=== PATIENT | male | born 1995 | race African-American/Black ===

== ENCOUNTER 2019-01-31 13:37 | Emergency (ER) | payer SELFPAY | END 2019-01-31 13:50 | disposition left against medical advice (07) | LOC: ER 13:37 | DX: Z11.3 Encounter for screening for infections with a predominantly sexual mode of transmission (principal); Z53.21 Procedure and treatment not carried out due to patient leaving prior to being seen by health care provider ==

== ENCOUNTER 2019-05-01 12:45 | Emergency (ER) | payer BC ==
[~2019-05-01] VITALS: Ht 175.3 cm; Wt 68.0 kg
[2019-05-01 13:23] VITALS: BP 132/85
--- NOTE | 2019-05-01 13:32 | RAD ---
HAND RIGHT 3V History: Right hand pain after punching brick wall. One week ago. Technique: 3 views right hand. Comparison: None. Findings: Transverse comminuted right fifth metacarpal shaft fracture. Mild angulation of the distal fracture fragment. There is overlying soft tissue swelling. Otherwise, normal alignment. No additional fracture. Impression: 1. Transverse slightly comminuted angulated right fifth metacarpal shaft fracture with overlying soft tissue swelling. Electronically signed by: Norbert Gutiérrez DO (05/01/2019 1:29 PM) [facility]
--- NOTE | 2019-05-01 14:01 | PHYS DOC ---
Past Medical History Past Medical History: No Pertinent History Past Surgical History: No Surgical History Alcohol Use: None Drug Use: None Adult General Chief Complaint Chief Complaint: HAND PROBLEM [facility] HPI Patient is a 23 year old AA male who presents to the ER with complaints of right hand pain and swelling proximal to his 5th digit after punching a brick wall a week ago. Pt currently rates his pain a 4/10 on the pain scale at rest, the pain increases if he moves his fingers. He denies any pain in his right wrist. Pt is R handed. ROS Pt denies any numbness, tingling, or decreased ROM of R fingers. He denies any R wrist pain or R arm pain. He denies any fever, cough, shortness of breath, headache, nausea, vomiting, or diarrhea. All other ROS is neg unless otherwise noted in HPI. Review of Systems Review of Systems See Above Physical Exam Physical Exam See Above Constitutional: Well developed, well nourished, no acute distress, non-toxic appearance. [] HENT: Normocephalic, atraumatic, bilateral external ears normal, nose normal. [] Eyes: PERRLA, EOMI, conjunctiva normal, no discharge. [] Neck: Normal range of motion, no stridor. [] Cardiovascular:Heart rate regular rhythm Lungs & Thorax: Respirations even and unlabored, no retractions, no respiratory distress Skin: Warm, dry, no erythema, no rash, no bruising] Back: No tenderness, no CVA tenderness. [] Extremities: Lateral left hand TTP, no obvious deformity, 1+ edema to lateral left hand, no cyanosis, no clubbing, ROM intact Neurologic: Alert and oriented X 3, normal motor function, normal sensory funct ion, no focal deficits noted. [] Psychologic: Affect normal, judgement normal, mood normal. [] Current Patient Data Vital Signs Vital Signs Date Time Temp Pulse Resp B/P (MAP) Pulse Ox O2 Delivery O2 Flow Rate FiO2 05/01/19 13:23 98.5 87 16 132/85 (101) 100 Room Air 98.5 EKG EKG [] Radiology/Procedures Radiology/Procedures PROCEDURE: HAND RIGHT 3V HAND RIGHT 3V History: Right hand pain after punching brick wall. One week ago. Technique: 3 views right hand. Comparison: None. Findings: Transverse comminuted right fifth metacarpal shaft fracture. Mild angulation of the distal fracture fragment. There is overlying soft tissue swelling. Otherwise, normal alignment. No additional fracture. Impression: 1. Transverse slightly comminuted angulated right fifth metacarpal shaft fracture with overlying soft tissue swelling.[] Course & Med Decision Making Course & Med Decision Making Pertinent Labs and Imaging studies reviewed. (See chart for details) [] Dragon Disclaimer Dragon Disclaimer This electronic medical record was generated, in whole or in part, using a voice recognition dictation system. 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 Wear the splint that was placed until follow up appointment with . Return to the ER if your symptoms worsen. Splinting Splinting : Location: right hand Hand-Made Type: orthoglass (ulnar gutter) Splint: ulnar (ulnar gutter) Pre-Proc Neuro Vasc Exam: normal Post-Proc Neuro Vasc Exam: normal, unchanged from pre-exam Progress Splint was applied by myself and Tere RN. Pt tolerated procedure well, no complications. 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
== END 2019-05-01 14:11 | disposition home or self-care (01) ==
LOC: ER 12:45
DX: S62.356A Nondisplaced fracture of shaft of fifth metacarpal bone, right hand, initial encounter for closed fracture (principal); W22.01XA Walked into wall, initial encounter; Y93.89 Activity, other specified; Y92.89 Other specified places as the place of occurrence of the external cause; Y99.8 Other external cause status
CPT/HCPCS: 29125; 73130; 99284